=== PATIENT | male | born 1950 | race Caucasian/White ===

== ENCOUNTER 2016-10-06 15:43 | Emergency (ER) | payer OTHER ==
[2016-10-06 16:06] VITALS: BP 153/94
[2016-10-06] MEDS ORDERED: Bupivacaine 0.5%/EPINEPHrine 1:200,000 1.8 ML Cartridge INJECT ONE (16:14)
--- NOTE | 2016-10-06 17:06 | EDM.PDOC ---
ED HPI GENERAL MEDICAL PROBLEM - General Chief Complaint: ENT Problem Stated Complaint: ABCESS Time Seen by Provider: 10/06/16 16:00 Source of Information: Reports: Patient History Limitations: Reports: No Limitations - History of Present Illness INITIAL COMMENTS - FREE TEXT/NARRATIVE: Connor is a 65 year old male who presents to the ED today with c/o right upper tooth pain and facial swelling, progressive since Saturday. Patient reports low grade fever started last night, he denies any chills, nausea/vomiting or other systemic system concerns. Patient is on Coumadin for atrial fibrillation. Patient has not been to a dentist in years secondary to lack of dental coverage. Onset: Gradual Duration: Day(s): (5) Location: Reports: Face, Other (Mouth) Right Face Pain Score (Numeric/FACES): 3 - Related Data Allergies Allergy/AdvReac Type Severity Reaction Status Date / Time No Known Allergies Allergy Verified 10/06/16 16:17 Past Medical History Cardiovascular History: Reports: Afib, CAD, High Cholesterol, Hypertension, [place] Genitourinary History: Reports: Renal Calculus Musculoskeletal History: Reports: Fracture Psychiatric History: Reports: Addiction, Anxiety, Depression, Panic Attack Endocrine/Metabolic History: Reports: Diabetes, Type II Hematologic History: Reports: Anticoagulation Therapy Oncologic (Cancer) History: Reports: Colon - Past Surgical History Cardiovascular Surgical History: Reports: Coronary Artery Stent GI Surgical History: Reports: Appendectomy, Colon Musculoskeletal Surgical History: Reports: Arthroscopic Knee, Other (See Below) Other Musculoskeletal Surgeries/Procedures:: ankle repair Social & Family History - Tobacco Use Smoking Status *Q: Heavy Tobacco Smoker Years of Tobacco use: 45 Packs/Tins Daily: 1 - Recreational Drug Use Recreational Drug Use: No ED ROS ENT - Review of Systems Review Of Systems: See Below Constitutional: Reports: Fever HEENT: Reports: No Symptoms Respiratory: Reports: No Symptoms Cardiovascular: Reports: No Symptoms Endocrine: Reports: No Symptoms GI/Abdominal: Reports: No Symptoms : Reports: No Symptoms Musculoskeletal: Reports: No Symptoms Skin: Reports: Other (Right Cheek Swelling) Neurological: Reports: No Symptoms ED EXAM, ENT - Physical Exam Exam: See Below Exam Limited By: No Limitations General Appearance: Alert, WD/WN, No Apparent Distress Eye Exam: Bilateral Eye: EOMI, Normal Inspection, PERRL Ears: Normal External Exam, Normal TMs Mouth/Throat: Dental Abcess, Dental Tenderness, Gum Swelling, Other (No exudate , no trismus, no evidence of Everton's Angina, uvula midline, no exudate, surrounding gum erythema with fluctuance above broken/decayed tooth # 5) Head: Atraumatic Neck: Normal Inspection, Supple, Non-Tender, Full Range of Motion, Lymphadenopathy (R) (+2) Respiratory/Chest: No Respiratory Distress, Lungs Clear, Normal Breath Sounds Cardiovascular: Normal Peripheral Pulses, No Murmur, Irregularly Irregular. No : Regular Rate, Rhythm Neurological: Alert, Oriented, CN II-XII Intact Psychiatric: Normal Affect, Normal Mood Course - Vital Signs Last Recorded V/S: Last Vital Signs Temp 37.9 C 10/06/16 16:16 Pulse 95 10/06/16 16:16 Resp 16 10/06/16 16:16 BP 153/94 H 10/06/16 16:16 Pulse Ox 98 10/06/16 16:16 Connor is a 65 year old male, hx of atrial fibrillation on Coumadin who presents to the ED today with c/o right upper tooth pain and swelling, affected tooth number 5. Patient on initial arrival here as low grade temp of 100.0 F. Patient is non-toxic appearing, well hydrated, normotensive and not tachycardic. I am not concerned for sepsis based on exam. Patient's remaining exam consistent with dental abscess, block done after obtaining patient verbal consent. Area around tooth anesthetized with 3.6 ml of Marcaine 0.5 % with epi via dental syringe. Patient tolerated well, small incision made, 2 mm to area of fluctuance along gumline with purulent/blood drainage return. Patient tolerated well. No evidence of significant bleeding. I will start patient on Amoxicillin for 10 days, he can continue with Tylenol, I did given him Oxycodone for severe pain. Patient instructed to f/u with Dentist in one week, reasons to return to the ED discussed in detail. I did encourage patient to start Culturelle, a probiotic to prevent stomach upset and diarrhea. I also instructed patient to have INR checked Saturday or this week to make sure it is not supra-therapeutic. Patient is agreeable to plan of care and discharge instructions. He was discharged in stable condition with his driving. - Orders/Labs/Meds Meds: Medications Discontinued Medications Generic Name Dose Route Start Last Admin Trade Name Rere PRN Reason Stop Dose Admin Bupivacaine HCl/Epinephrine Bitart 3.6 ml 10/06/16 16:14 Marcaine 0.5%/Epinephrine 1:200,000 INJECT 10/06/16 16:15 ONETIME ONE Departure - Departure Time of Disposition: 17:30 Disposition: Refer to Observation Condition: Good Clinical Impression: Dental abscess, Facial cellulitis - Discharge Information Instructions: Dental Abscess Referrals: Brandi Barbour PA-C [Primary Care Provider] - Forms: ED Department Discharge Additional Instructions: Take Antiobiotics as prescribed. Have INR checked this next week as antibiotics may make your INR higher. Follow up with Dentist in one week. Return to the ED with any worsening symptoms. I would recommend a probiotic such as Culturelle while you are on the amoxicillin to prevent stomach upset and diarrhea. Take Tylenol for pain, take Oxycodone for severe pain (no driving if you take the oxycodone)
== END 2016-10-06 17:24 | disposition home or self-care (01) ==
LOC: JP.ED 15:43
DX: K04.7 Periapical abscess without sinus (principal); L03.211 Cellulitis of face; I48.91 Unspecified atrial fibrillation; I25.10 Atherosclerotic heart disease of native coronary artery without angina pectoris; I10 Essential (primary) hypertension; I25.2 Old myocardial infarction; E78.00 Pure hypercholesterolemia, unspecified; F41.0 Panic disorder [episodic paroxysmal anxiety]; F32.9 Major depressive disorder, single episode, unspecified; F17.210 Nicotine dependence, cigarettes, uncomplicated; E11.9 Type 2 diabetes mellitus without complications; Z85.038 Personal history of other malignant neoplasm of large intestine; Z95.5 Presence of coronary angioplasty implant and graft; Z90.49 Acquired absence of other specified parts of digestive tract; Z98.890 Other specified postprocedural states
CPT/HCPCS: 41800; 99283-25

== ENCOUNTER 2017-06-13 15:50 | Emergency (ER) | payer OTHER ==
--- NOTE | 2017-06-13 16:17 | EDM.PDOC ---
ED HPI GENERAL MEDICAL PROBLEM - General Chief Complaint: Neuro Symptoms/Deficits Stated Complaint: MEDICAL VIA [facility] Time Seen by Provider: 06/13/17 16:10 Source of Information: Reports: Patient, EMS, Old Records, RN History Limitations: Reports: No Limitations - History of Present Illness INITIAL COMMENTS - FREE TEXT/NARRATIVE: 66 yo male presents via EMS with slurred speech, weakness(diffuse) and HTN. Neuro sx' of about 90 min duration before EMS arrival at the home. Weakness was subtle per EMS. Worked outside cutting wood this morning without issue. Has had a RAO for a couple days, at about 1430 h today RAO got a lot worse and nearly passed out. Decreased LOC per EMS. Onset: Today Onset Date: 06/13/17 Onset Time: 14:30 Duration: Minutes:, Constant Location: Reports: Head Quality: Reports: Ache Severity: Severe Improves with: Reports: None Worsens with: Reports: None Context: Reports: Other (RAO on and off for a couple days with HTN) Associated Symptoms: Reports: Weakness (generalized) Treatments INVASIVE CARDIOLOGIST: Reports: Other (see below) (saline lock) - Related Data Allergies Allergy/AdvReac Type Severity Reaction Status Date / Time No Known Allergies Allergy Verified 06/13/17 17:52 Home Meds: Home Meds *Warfarin 06/13/17 [History] Aspirin 06/13/17 [History] Diltiazem HCl [Tiazac] 06/13/17 [History] Hydrochlorothiazide 1 tab PO DAILY 06/13/17 [History] Isosorbide Mononitrate [Isosorbide Mononitrate ER] 1 tab PO DAILY 06/13/17 [ History] Losartan [Cozaar] 1 tab PO DAILY 06/13/17 [History] Metoprolol Tartrate [Lopressor] 1 tab PO BID 06/13/17 [History] Simvastatin [Zocor] 20 mg PO BEDTIME 06/13/17 [History] amLODIPine Besylate [Amlodipine Besylate] 1 tab PO DAILY 06/13/17 [History] metFORMIN [Glucophage] 1 tab PO DAILY 06/13/17 [History] Past Medical History Cardiovascular History: Reports: Afib, CAD, High Cholesterol, Hypertension, [place] Genitourinary History: Reports: Renal Calculus Musculoskeletal History: Reports: Fracture Psychiatric History: Reports: Addiction, Anxiety, Depression, Panic Attack Endocrine/Metabolic History: Reports: Diabetes, Type II Hematologic History: Reports: Anticoagulation Therapy Oncologic (Cancer) History: Reports: Colon - Past Surgical History Cardiovascular Surgical History: Reports: Coronary Artery Stent GI Surgical History: Reports: Appendectomy, Colon Musculoskeletal Surgical History: Reports: Arthroscopic Knee, Other (See Below) Other Musculoskeletal Surgeries/Procedures:: ankle repair Social & Family History - Tobacco Use Smoking Status *Q: Heavy Tobacco Smoker Years of Tobacco use: 45 Packs/Tins Daily: 1 - Recreational Drug Use Recreational Drug Use: No ED ROS GENERAL - Review of Systems Review Of Systems: Unable To Obtain (Decreased LOC, not here yet) ED EXAM, NEURO - Physical Exam Exam: See Below Exam Limited By: No Limitations General Appearance: WD/WN, Obtunded, Mild Distress, Obese Eye Exam: Bilateral Eye: Normal Inspection Ears: Normal External Exam, Normal Canal, Hearing Grossly Normal, Normal TMs Nose: Normal Inspection, Normal Mucosa, No Blood Throat/Mouth: Normal Inspection, Normal Lips, Normal Oropharynx, Normal Voice, No Airway Compromise Head Exam: Atraumatic, Normocephalic Neck: Normal Inspection, Supple, Non-Tender Respiratory/Chest: No Respiratory Distress, Lungs Clear, Normal Breath Sounds, No Accessory Muscle Use Cardiovascular: Regular Rate, Rhythm GI/Abdominal: Normal Bowel Sounds, Soft, Non-Tender, No Distention Neurological: CN II-XII Intact, Other (diffuse weakness 4/5 all extrems, non- verbal. Follows commands. ) DTR: 3+: Bicep (R), Bicep (L), Tricep (R), Tricep (L), Patella (R), Patella (L) , Achilles (R), Achilles (L) Back Exam: Normal Inspection Extremities: Normal Inspection, Normal Range of Motion, Non-Tender, No Pedal Edema Psychiatric: Flat Affect Skin Exam: Warm, Dry, Intact, Normal Color, No Rash EKG INTERPRETATION EKG Date: 06/13/17 Time: 16:25 Rhythm: A-Fib Rate (Beats/Min): 86 [place]: Normal P-Wave: Absent QRS: Normal ST-T: Normal QT: Normal Comparison: NA - No Prior EKG Course - Vital Signs Text/Narrative:: Stroke neurology consult obtained @ 1650h Last Recorded V/S: Last Vital Signs Temp 36.2 C 06/13/17 16:03 Pulse 90 06/13/17 18:22 Resp 22 H 03/08/18 18:22 BP 149/80 H 06/13/17 18:22 Pulse Ox 94 L 06/13/17 18:22 - Orders/Labs/Meds Orders: Active Orders 24 hr Category Date Time Status Cardiac Monitoring [RC] .As Directed Care 06/13/17 16:26 Active EKG Documentation Completion [RC] ASDIRECTED Care 06/13/17 16:26 Active Schaefer Catheter Insertion [Insert Urinary Catheter] [OM. Care 06/13/17 16:30 Ordered PC] Q24H Oxygen Therapy Adult [Oxygen Therapy, ED] [RC] Care 06/13/17 16:25 Active ASDIRECTED Urinary Catheter Assessment [RC] ASDIRECTED Care 06/13/17 16:25 Active Ang Head [CT] Stat Exams 06/13/17 16:51 Taken Ang Neck [CT] Stat Exams 06/13/17 16:51 Taken Head wo Cont [CT] Stat Exams 06/13/17 16:01 Taken Iopamidol [Isovue-370 (76%)] Med 06/13/17 17:30 Active 100 ml IV . DIRECTED Potassium Chloride [KCL 20 MEQ in Water 100 ML] 20 meq Med 06/13/17 16:38 Active Premix Bag 1 bag IV ONETIME Sodium Chloride 0.9% [Normal Saline] 1,000 ml Med 06/13/17 16:30 Active IV ASDIRECTED Sodium Chloride 0.9% [Normal Saline] 80 ml Med 06/13/17 17:30 Active IV ASDIRECTED EKG 12 Lead [EK] Routine Ther 06/13/17 16:26 Ordered Medication Orders Sodium Chloride (Normal Saline) 1,000 mls @ 75 mls/hr IV ASDIRECTED [facility] Last Admin: 06/13/17 16:31 Dose: 75 mls/hr Potassium Chloride 20 meq/ (Premix) 100 mls @ 50 mls/hr IV ONETIME ONE Stop: 06/13/17 18:37 Last Admin: 06/13/17 17:03 Dose: 50 mls/hr Sodium Chloride (Normal Saline) 80 mls @ 3 mls/sec IV ASDIRECTED [facility] Last Admin: 06/13/17 17:28 Dose: 3 mls/sec Iopamidol (Isovue-370 (76%)) 100 ml IV . DIRECTED TESS Last Admin: 06/13/17 17:28 Dose: 100 ml Labs: Laboratory Tests 06/13/17 06/13/17 06/13/17 Range/Units 16:24 16:24 16:27 WBC 12.3 H (4.5-11.0) K/uL RBC 5.94 H (4.30-5.90) M/uL Hgb 18.1 H* (12.0-15.0) g/dL Hct 50.7 (40.0-54.0) % MCV 85 (80-98) fL MCH 31 (27-31) pg MCHC 36 (32-36) % Plt Count 388 (150-400) K/uL PT 34.6 H (9.5-12.0) sec INR 3.09 H (0.80-1.20) Sodium 145 (140-148) mmol/L Potassium 3.1 L (3.6-5.2) mmol/L Chloride 103 (100-108) mmol/L Carbon Dioxide 28 (21-32) mmol/L Anion Gap 17.1 H (5.0-14.0) mmol/L BUN 15 (7-18) mg/dL Creatinine 1.3 (0.8-1.3) mg/dL Est Cr Clr Drug Dosing 61.14 mL/min Estimated GFR (MDRD) 56 L (>60) Glucose 136 H (74-106) mg/dL Calcium 9.8 (8.5-10.1) mg/dL Magnesium (1.8-2.4) mg/dL Troponin I < 0.017 (0.000-0.056) ng/mL Urine Color Urine Appearance Urine pH (4.5-8.0) Ur Specific [place] (1.008-1.030) Urine Protein (NEGATIVE) mg/dL Urine Glucose (UA) (NEGATIVE) mg/dL Urine Ketones (NEGATIVE) mg/dL Urine Occult Blood (NEGATIVE) Urine Nitrite (NEGAITVE) Urine Bilirubin (NEGATIVE) Urine Urobilinogen (NORMAL) mg/dL Ur Leukocyte Esterase (NEGATIVE) Urine RBC (0-5) Urine WBC (0-5) Ur Epithelial Cells Amorphous Sediment Urine Bacteria Urine Mucus 06/13/17 06/13/17 Range/Units 16:39 16:39 WBC (4.5-11.0) K/uL RBC (4.30-5.90) M/uL Hgb (12.0-15.0) g/dL Hct (40.0-54.0) % MCV (80-98) fL MCH (27-31) pg MCHC (32-36) % Plt Count (150-400) K/uL PT (9.5-12.0) sec INR (0.80-1.20) Sodium (140-148) mmol/L Potassium (3.6-5.2) mmol/L Chloride (100-108) mmol/L Carbon Dioxide (21-32) mmol/L Anion Gap (5.0-14.0) mmol/L BUN (7-18) mg/dL Creatinine (0.8-1.3) mg/dL Est Cr Clr Drug Dosing mL/min Estimated GFR (MDRD) (>60) Glucose (74-106) mg/dL Calcium (8.5-10.1) mg/dL Magnesium 2.1 (1.8-2.4) mg/dL Troponin I (0.000-0.056) ng/mL Urine Color Yellow Urine Appearance Slightly cloudy Urine pH 8.0 (4.5-8.0) Ur Specific [place] 1.020 (1.008-1.030) Urine Protein 30 H (NEGATIVE) mg/dL Urine Glucose (UA) Normal (NEGATIVE) mg/dL Urine Ketones Negative (NEGATIVE) mg/dL Urine Occult Blood Negative (NEGATIVE) Urine Nitrite Negative (NEGAITVE) Urine Bilirubin Negative (NEGATIVE) Urine Urobilinogen Normal (NORMAL) mg/dL Ur Leukocyte Esterase Negative (NEGATIVE) Urine RBC 0-5 (0-5) Urine WBC 0-5 (0-5) Ur Epithelial Cells Rare Amorphous Sediment Few Urine Bacteria Few Urine Mucus Not seen Meds: Medications Generic Name Dose Route Start Last Admin Trade Name Freq PRN Reason Stop Dose Admin Sodium Chloride 1,000 mls @ 75 mls/hr 06/13/17 16:30 06/13/17 16:31 Normal Saline IV 75 mls/hr ASDIRECTED TESS Administration Potassium Chloride 20 meq/ 100 mls @ 50 mls/hr 06/13/17 16:38 06/13/17 17:03 Premix IV 06/13/17 18:37 50 mls/hr ONETIME ONE Administration Sodium Chloride 80 mls @ 3 mls/sec 06/13/17 17:30 06/13/17 17:28 Normal Saline IV 3 mls/sec ASDIRECTED TESS Administration Iopamidol 100 ml 06/13/17 17:30 06/13/17 17:28 Isovue-370 (76%) IV 100 ml . DIRECTED TESS Administration Discontinued Medications Generic Name Dose Route Start Last Admin Trade Name Rere PRN Reason Stop Dose Admin Labetalol HCl 10 mg 06/13/17 16:44 06/13/17 17:03 Normodyne IVPUSH 06/13/17 16:45 10 mg ONETIME ONE Administration Protocol Morphine Sulfate 2 mg 06/13/17 18:05 Morphine IVPUSH 06/13/17 18:06 ONETIME ONE - Radiology Interpretation Free Text/Narrative:: Negative Head CT CTA head and neck-mass at L base of tongue, opacified L vertebral artery. Otherwise negative. CT Results Date: 06/13/17 CT Results Time: 16:36 Departure - Departure Time of Disposition: 18:45 Disposition: DC/Tfer to Acute Hospital 02 Condition: Poor Clinical Impression: Hypokalemia, Polycythemia, Tobacco abuse, Tongue mass Atrial fibrillation Qualifiers: Atrial fibrillation type: chronic Qualified Code(s): I48.2 - Chronic atrial fibrillation HTN (hypertension) Qualifiers: Hypertension type: essential hypertension Qualified Code(s): I10 - Essential ( primary) hypertension Headache Qualifiers: Headache type: unspecified Headache chronicity pattern: acute headache Intractability: intractable Qualified Code(s): R51 - Headache - Discharge Information Referrals: PCP,None [Primary Care Provider] - Forms: ED Department Discharge - My Orders Last 24 Hours: My Active Orders 06/13/17 16:01 Head wo Cont [CT] Stat 06/13/17 16:25 Oxygen Therapy Adult [Oxygen Therapy, ED] [RC] ASDIRECTED Urinary Catheter Assessment [RC] ASDIRECTED 06/13/17 16:26 Cardiac Monitoring [RC] .As Directed EKG Documentation Completion [RC] ASDIRECTED EKG 12 Lead [EK] Routine 06/13/17 16:30 Schaefer Catheter Insertion [Insert Urinary Catheter] [OM.PC] Q24H Sodium Chloride 0.9% [Normal Saline] 1,000 ml IV ASDIRECTED 06/13/17 16:38 Potassium Chloride [KCL 20 MEQ in Water 100 ML] 20 meq Premix Bag 1 bag IV ONETIME 06/13/17 16:51 Ang Head [CT] Stat Ang Neck [CT] Stat 06/13/17 17:30 Iopamidol [Isovue-370 (76%)] 100 ml IV . DIRECTED Sodium Chloride 0.9% [Normal Saline] 80 ml IV ASDIRECTED - Assessment/Plan Last 24 Hours: My Active Orders 06/13/17 16:01 Head wo Cont [CT] Stat 06/13/17 16:25 Oxygen Therapy Adult [Oxygen Therapy, ED] [RC] ASDIRECTED Urinary Catheter Assessment [RC] ASDIRECTED 06/13/17 16:26 Cardiac Monitoring [RC] .As Directed EKG Documentation Completion [RC] ASDIRECTED EKG 12 Lead [EK] Routine 06/13/17 16:30 Schaefer Catheter Insertion [Insert Urinary Catheter] [OM.PC] Q24H Sodium Chloride 0.9% [Normal Saline] 1,000 ml IV ASDIRECTED 06/13/17 16:38 Potassium Chloride [KCL 20 MEQ in Water 100 ML] 20 meq Premix Bag 1 bag IV ONETIME 06/13/17 16:51 Ang Head [CT] Stat Ang Neck [CT] Stat 06/13/17 17:30 Iopamidol [Isovue-370 (76%)] 100 ml IV . DIRECTED Sodium Chloride 0.9% [Normal Saline] 80 ml IV ASDIRECTED
[2017-06-13] MEDS ORDERED: Sodium Chloride 0.9% 1,000 ML IV SCH (16:30)
[2017-06-13] MEDS ORDERED: Potassium Chloride 20 MEQ in Premix Bag 1 BAG IV ONE (16:38)
[2017-06-13] MEDS ORDERED: Labetalol 20 MG/4 ML Syringe IVPUSH ONE (16:44)
[2017-06-13] MEDS ORDERED: Iopamidol 755 Mg/ML 100 ML Bottle IV SCH (17:30)
[2017-06-13] MEDS ORDERED: Sodium Chloride 0.9% 80 ML IV SCH (17:30)
[2017-06-13] MEDS ORDERED: Morphine 2 MG/ML Syringe IVPUSH ONE (18:05)
[2017-06-13 18:25] VITALS: BP 149/80
== END 2017-06-13 18:57 ==
LOC: JP.ED 15:50
DX: I48.2 Chronic atrial fibrillation (principal); E87.6 Hypokalemia; I10 Essential (primary) hypertension; D75.1 Secondary polycythemia; R22.9 Localized swelling, mass and lump, unspecified; R51 Headache; E78.00 Pure hypercholesterolemia, unspecified; I25.2 Old myocardial infarction; E11.9 Type 2 diabetes mellitus without complications; F17.210 Nicotine dependence, cigarettes, uncomplicated; Z79.84 Long term (current) use of oral hypoglycemic drugs; Z79.01 Long term (current) use of anticoagulants; Z79.899 Other long term (current) drug therapy
CPT/HCPCS: 36415; 51702; 70450; 70496; 70498; 80048; 81001; 83735; 84484; 85027; 85610; 93005; 96361; 96374; 99285; J3480; J7030; J7040; Q9967; 99284

== ENCOUNTER 2020-07-15 17:17 | Emergency (ER) | payer OTHER | END 2020-07-15 19:12 | disposition left against medical advice (07) | LOC: JP.ED 17:17 | DX: Z53.21 Procedure and treatment not carried out due to patient leaving prior to being seen by health care provider (principal) ==

== ENCOUNTER 2020-12-06 17:17 | Emergency (ER) | payer OTHER ==
[2020-12-06 17:47] VITALS: BP 156/80; PULSE 105
--- NOTE | 2020-12-06 18:34 | EDM.PDOC ---
ED HPI GENERAL MEDICAL PROBLEM - General Chief Complaint: Genitourinary Problem Stated Complaint: BLEEDING AFTER PROCEDURE Time Seen by Provider: 12/06/20 18:00 Source of Information: Reports: Patient, Family History Limitations: Reports: No Limitations - History of Present Illness INITIAL COMMENTS - FREE TEXT/NARRATIVE: 70-year-old male with significant hematuria which is persistent especially later in the day after having a stent placed in the left ureter last . He has an appointment with the radio news anchor in 2 days and with the urologist to remove the stent in 1 week. Some intermittent pain but not worsening, no fevers or chills. He is concerned about the persistent blood in his urine, called the clinic and was told to come to the emergency room. A UA was obtained and does appear to be grossly bloody. He also feels her persistent urgent sensation to urinate but is emptying his bladder. No shortness of breath or chest pain. Denies nausea or vomiting. Duration: Day(s): (Symptoms have been ongoing since his stent placement last but worsening over the last few days) Associated Symptoms: Reports: Other (Intermittent back and abdominal pain). Denies: Fever/Chills, Headaches, Loss of Appetite, Malaise, Nausea/Vomiting, Shortness of Breath, Weakness - Related Data Allergies Allergy/AdvReac Type Severity Reaction Status Date / Time No Known Allergies Allergy Verified 12/06/20 17:32 Home Meds: Home Meds Aspirin 81 mg PO DAILY 06/13/17 [History] Isosorbide Mononitrate [Isosorbide Mononitrate ER] 15 mg PO DAILY 06/13/17 [History] Metoprolol Tartrate [Lopressor] 25 mg PO BID 06/13/17 [History] amLODIPine Besylate [Amlodipine Besylate] 1 tab PO DAILY 06/13/17 [History] metFORMIN [Glucophage] 1 tab PO DAILY 06/13/17 [History] Amiodarone HCl [Pacerone] 200 mg PO DAILY 12/06/20 [History] Chlorthalidone 25 mg PO DAILY 12/06/20 [History] Dabigatran Etexilate Mesylate [Pradaxa] 150 mg PO DAILY 12/06/20 [History] Nitroglycerin [Nitrostat] 0.4 mg SL ASDIRECTED 12/06/20 [History] Tamsulosin [Tamsulosin 24 Hr] 0.4 mg PO DAILY 12/06/20 [History] atorvaSTATin [Lipitor] 40 mg PO BEDTIME 12/06/20 [History] Past Medical History Cardiovascular History: Reports: Afib, CAD, High Cholesterol, Hypertension, [place] Genitourinary History: Reports: Renal Calculus, Other (See Below) Other Genitourinary History: stent placed Musculoskeletal History: Reports: Fracture Psychiatric History: Reports: Addiction, Anxiety, Depression, Panic Attack Endocrine/Metabolic History: Reports: Diabetes, Type II Hematologic History: Reports: Anticoagulation Therapy Oncologic (Cancer) History: Reports: Colon - Past Surgical History Cardiovascular Surgical History: Reports: Coronary Artery Stent GI Surgical History: Reports: Appendectomy, Colon Musculoskeletal Surgical History: Reports: Arthroscopic Knee, Other (See Below) Other Musculoskeletal Surgeries/Procedures:: ankle repair Social & Family History - Tobacco Use Tobacco Use Status *Q: Never Tobacco User ED ROS GENERAL - Review of Systems Review Of Systems: See Below Constitutional: Denies: Fever, Chills, Malaise HEENT: Reports: No Symptoms Respiratory: Denies: Shortness of Breath, Cough Cardiovascular: Denies: Chest Pain GI/Abdominal: Reports: Abdominal Pain. Denies: Nausea, Vomiting : Reports: Hematuria, Urgency Musculoskeletal: Reports: Back Pain Skin: Reports: No Symptoms Neurological: Reports: No Symptoms ED EXAM, RENAL/ - Physical Exam Exam: See Below Exam Limited By: No Limitations General Appearance: Alert, No Apparent Distress Eye Exam: Bilateral Eye: Normal Inspection (Good hydration, normal conjunctival color) Head: Atraumatic Respiratory/Chest: No Respiratory Distress, Lungs Clear Cardiovascular: Regular Rate, Rhythm GI/Abdominal: Soft, Tender (Mild discomfort with palpation across the left side of the abdomen but no guarding or rebound) Extremities: Normal Inspection. No: Pedal Edema Neurological: Alert, Oriented Psychiatric: Normal Affect, Normal Mood Skin Exam: Warm, Dry Course - Vital Signs Last Recorded V/S: Last Vital Signs Temp 97.3 F 12/06/20 17:48 Pulse 105 H 12/06/20 17:48 Resp 20 12/06/20 17:48 BP 156/80 H 12/06/20 17:48 Pulse Ox 96 12/06/20 17:48 - Orders/Labs/Meds Orders: Active Orders 24 hr Category Date Time Status Abdomen 1V Flat [CR] Stat Exams 12/06/20 19:15 Taken Renal Ltd [US] Stat Exams 12/06/20 19:15 Taken Labs: Laboratory Tests 12/06/20 12/06/20 12/06/20 Range/Units 18:10 18:20 18:20 WBC 10.9 (4.5-11.0) K/uL RBC 4.97 (4.30-5.90) M/uL Hgb 15.5 H D (12.0-15.0) g/dL Hct 44.5 (40.0-54.0) % MCV 90 (80-98) fL MCH 31 (27-31) pg MCHC 35 (32-36) % Plt Count 310 (150-400) K/uL Neut % (Auto) 72.7 H (36-66) % Lymph % (Auto) 17.7 L (24-44) % [place] % (Auto) 7.5 H (2-6) % Eos % (Auto) 1.6 L (2-4) % Baso % (Auto) 0.5 (0-1) % Sodium 140 (140-148) mmol/L Potassium 3.5 L (3.6-5.2) mmol/L Chloride 101 (100-108) mmol/L Carbon Dioxide 30 (21-32) mmol/L Anion Gap 12.5 (5.0-14.0) mmol/L BUN 27 H D (7-18) mg/dL Creatinine 2.3 H D (0.8-1.3) mg/dL Est Cr Clr Drug Dosing 31.74 mL/min Estimated GFR (MDRD) 28 L (>60) Glucose 128 H (74-106) mg/dL Calcium 9.3 (8.5-10.1) mg/dL Urine Color Red A (YELLOW) Urine Appearance Turbid A (CLEAR) Urine pH 5.5 (5.0-8.0) Ur Specific [place] >= 1.030 (1.008-1.030) Urine Protein >=300 H (NEGATIVE) mg/dL Urine Glucose (UA) Negative (NEGATIVE) mg/dL Urine Ketones Trace H (NEGATIVE) mg/dL Urine Occult Blood Large H (NEGATIVE) Urine Nitrite Negative (NEGATIVE) Urine Bilirubin Moderate H (NEGATIVE) Urine Urobilinogen 0.2 (0.2-1.0) EU/dL Ur Leukocyte Esterase Trace H (NEGATIVE) Urine RBC Packed H (0-5) Urine WBC 0-5 (0-5) Ur Epithelial Cells Not seen Amorphous Sediment Few Urine Bacteria Moderate Urine Mucus Not seen Urine Other - Re-Assessments/Exams Free Text/Narrative Re-Assessment/Exam: 12/06/20 18:35 Urine was grossly bloody, sample was sent to the lab. Bladder scan showed an empty bladder. CBC and BMP were obtained. 12/06/20 20:25 UA showed moderate bacteria, packed RBCs. Discussion was had with urology, it was recommended that he get a KUB and ultrasound to rule out hydronephrosis of the left kidney due to the mildly increasing creatinine and decreasing GFR. These were both normal and reassuring. A culture of the urine was started, patient will be put on Cipro 500 mg twice daily and follow-up with nephrology in 2 days as scheduled. Continue to push fluids. Departure - Departure Time of Disposition: 20:31 Disposition: Home, Self-Care 01 Clinical Impression: Hematuria, gross, Acute kidney injury - Discharge Information Instructions: Hematuria, Adult Referrals: Gretchen Wright, PRODUCTION SUPERVISOR [Primary Care Provider] - Forms: ED Department Discharge Care Plan Goals: Continue any current medications, take Cipro twice daily as directed and recheck with nephrology as planned. Return sooner if worsening such as increased pain or fever. Concentrate on drinking lots of water. Sepsis Event Note (ED) - Evaluation Sepsis Screening Result: No Definite Risk - Focused Exam Vital Signs: Vital Signs Temp Pulse Resp BP Pulse Ox 12/06/20 17:48 97.3 F 105 H 20 156/80 H 96 12/06/20 17:43 97.3 F 105 H 20 156/80 H 96 - My Orders Last 24 Hours: My Active Orders 12/06/20 19:15 Abdomen 1V Flat [CR] Stat Renal Ltd Bi [US] Stat - Assessment/Plan Last 24 Hours: My Active Orders 12/06/20 19:15 Abdomen 1V Flat [CR] Stat Renal Ltd Bi [US] Stat
--- NOTE | 2020-12-07 08:59 | US ---
Renal Ltd Bi CLINICAL HISTORY: Left ureteral stent. COMPARISON: None. TECHNIQUE: Multiple sonographic images were obtained through the kidneys in the sagittal and transverse projections. Right kidney measures 11.3 x 6.4 x 5.7 cm. Cortical thickness is 1.8 cm. Off the upper pole is a 3.7 x 4.0 x 3.8 cm simple cyst. There is a calcific density overlying the lower pole of the right kidney on current KUB. This is not definitively identified on ultrasound. There is some of echogenic focus in the lower pole without significant shadowing. Left kidney measures 12.0 x 7.1 x 6.2 cm. Cortical thickness is 1.6 cm.. IMPRESSION: Cyst upper pole right kidney Left-sided ureteral stent without hydronephrosis Right upper quadrant calcifications seen on current KUB is not definitively identified as a renal stone. This may be technical
--- NOTE | 2020-12-07 09:00 | CR ---
Abdomen 1V Flat CLINICAL HISTORY: Stent position FINDINGS: There is a double-J ureteral stent in the left collecting system. There is a 5 x 9 mm calcification overlying the lower pole of the right kidney. Gas pattern is nonspecific IMPRESSION: Left double-J ureteral stent Right upper quadrant calcification overlies the lower pole right kidney. This may be a urinary stone
== END 2020-12-06 20:43 | disposition home or self-care (01) ==
LOC: JP.ED 17:17
DX: R31.0 Gross hematuria (principal); N17.9 Acute kidney failure, unspecified; I48.91 Unspecified atrial fibrillation; I25.10 Atherosclerotic heart disease of native coronary artery without angina pectoris; I10 Essential (primary) hypertension; I25.2 Old myocardial infarction; E11.9 Type 2 diabetes mellitus without complications; Z79.82 Long term (current) use of aspirin; Z79.84 Long term (current) use of oral hypoglycemic drugs; Z79.899 Other long term (current) drug therapy; Z95.5 Presence of coronary angioplasty implant and graft
CPT/HCPCS: 36415; 74018; 74018-26; 76775-26; 76775-50; 80048; 81001; 85025; 99284-25

== ENCOUNTER 2021-04-13 14:51 | Emergency (ER) | payer OTHER ==
--- NOTE | 2021-04-13 15:30 | EDM.PDOC ---
ED HPI GENERAL MEDICAL PROBLEM - General Chief Complaint: Respiratory Problem Stated Complaint: SOB Time Seen by Provider: 04/13/21 15:20 Source of Information: Reports: Patient, Family History Limitations: Reports: No Limitations - History of Present Illness INITIAL COMMENTS - FREE TEXT/NARRATIVE: 70-year-old male with COPD, presents with increasing shortness of breath, hypoxi a, runny nose and mild headache for the past 24 hours. He recently had a visit from his grandchildren who all had viral colds. He denies any significant fever, chills or headache. Moderate cough which is nonproductive. Home nebulizer is helpful but he arrived to the emergency room with O2 sats only in the mid 80s. Denies nausea or vomiting, has no pain, he has been vaccinated for Covid with 2 doses, he has not had his booster yet. He is unsure if he has had his influenza vaccine. Onset: Gradual Duration: Hour(s): (Came on gradually over the last 24 hours) Improves with: Reports: Other (Oxygen supplied in the emergency room makes him feel much better, his DuoNeb also helps briefly) Associated Symptoms: Reports: Cough, Malaise, Shortness of Breath, Other (Rhinitis). Denies: Fever/Chills middle right upper back Pain Score (Numeric/FACES): 3 - Related Data Allergies Allergy/AdvReac Type Severity Reaction Status Date / Time No Known Allergies Allergy Verified 04/13/21 15:12 Home Meds: Home Meds Aspirin 81 mg PO DAILY 06/13/17 [History] Isosorbide Mononitrate [Isosorbide Mononitrate ER] 15 mg PO DAILY 06/13/17 [History] Metoprolol Tartrate [Lopressor] 50 mg PO BID 06/13/17 [History] amLODIPine Besylate [Amlodipine Besylate] 10 mg PO DAILY 06/13/17 [History] metFORMIN [Glucophage] 1 tab PO BEDTIME 06/13/17 [History] Amiodarone HCl [Pacerone] 200 mg PO DAILY 12/06/20 [History] Nitroglycerin [Nitrostat] 0.4 mg SL ASDIRECTED 12/06/20 [History] atorvaSTATin [Lipitor] 40 mg PO BEDTIME 12/06/20 [History] Dabigatran Etexilate Mesylate [Pradaxa] 75 mg PO DAILY 04/13/21 [History] lisinopriL [Lisinopril] 40 mg PO DAILY 04/13/21 [History] Past Medical History HEENT History: Reports: None Cardiovascular History: Reports: Afib, CAD, High Cholesterol, Hypertension, [place] Respiratory History: Reports: COPD Genitourinary History: Reports: Renal Calculus, Other (See Below) Other Genitourinary History: stent placed Musculoskeletal History: Reports: Fracture Psychiatric History: Reports: Addiction, Anxiety, Depression, Panic Attack Endocrine/Metabolic History: Reports: Diabetes, Type II Hematologic History: Reports: Anticoagulation Therapy Oncologic (Cancer) History: Reports: Colon - Infectious Disease History Infectious Disease History: Reports: Chicken Pox, Influenza, Measles - Past Surgical History HEENT Surgical History: Reports: None Cardiovascular Surgical History: Reports: Coronary Artery Stent GI Surgical History: Reports: Appendectomy, Colon Musculoskeletal Surgical History: Reports: Arthroscopic Knee, Other (See Below) Other Musculoskeletal Surgeries/Procedures:: ankle repair Social & Family History - Tobacco Use Years of Tobacco use: 47 - Caffeine Use Caffeine Use: Reports: Coffee - Recreational Drug Use Recreational Drug Use: No ED ROS GENERAL - Review of Systems Review Of Systems: See Below Constitutional: Reports: Malaise. Denies: Fever, Chills HEENT: Reports: Rhinitis. Denies: Throat Pain Respiratory: Reports: No Symptoms, Shortness of Breath. Denies: Sputum Cardiovascular: Denies: Chest Pain, Palpitations GI/Abdominal: Reports: No Symptoms : Reports: No Symptoms Skin: Reports: No Symptoms Neurological: Reports: No Symptoms. Denies: Headache Psychiatric: Reports: No Symptoms ED EXAM, GENERAL - Physical Exam Exam: See Below Exam Limited By: No Limitations General Appearance: Alert, No Apparent Distress, Other (Fairly uncomfortable on arrival, felt better after O2 was applied and his O2 sats went into the 90s) Eye Exam: Bilateral Eye: Normal Inspection Head: Atraumatic Neck: Supple, Non-Tender Respiratory/Chest: Lungs Clear, Other (Mild diffuse decreased breath sounds with some scattered rales in the left base) Cardiovascular: Regular Rate, Rhythm. No: Extra Beats GI/Abdominal: Soft, Non-Tender Extremities: Normal Inspection, Non-Tender. No: Pedal Edema Neurological: Oriented Psychiatric: Normal Affect, Normal Mood Skin Exam: Warm, Dry Course - Vital Signs Last Recorded V/S: Last Vital Signs Temp 99.8 F 01/06/22 17:39 Pulse 69 04/13/21 17:39 Resp 20 04/13/21 15:11 BP 171/75 H 04/13/21 17:39 Pulse Ox 90 L 04/13/21 17:39 - Orders/Labs/Meds Orders: Active Orders 24 hr Category Date Time Status Isolation [COMM] Stat Oth 04/13/21 15:25 Ordered Labs: Laboratory Tests 04/13/21 04/13/21 04/13/21 Range/Units 15:38 15:51 15:51 WBC 20.5 H (4.5-11.0) K/uL RBC 5.15 (4.30-5.90) M/uL Hgb 15.8 H (12.0-15.0) g/dL Hct 45.6 (40.0-54.0) % MCV 89 (80-98) fL MCH 31 (27-31) pg MCHC 35 (32-36) % Plt Count 344 (150-400) K/uL Neut % (Auto) 91.1 H (36-66) % Lymph % (Auto) 3.0 L (24-44) % [place] % (Auto) 5.2 (2-6) % Eos % (Auto) 0.1 L (2-4) % Baso % (Auto) 0.2 (0-1) % Sodium 136 L (140-148) mmol/L Potassium 3.6 (3.6-5.2) mmol/L Chloride 100 (100-108) mmol/L Carbon Dioxide 27 (21-32) mmol/L Anion Gap 12.6 (5.0-14.0) mmol/L BUN 19 H (7-18) mg/dL Creatinine 1.5 H (0.8-1.3) mg/dL Est Cr Clr Drug Dosing 48.67 mL/min Estimated GFR (MDRD) 47 L (>60) Glucose 128 H (74-106) mg/dL Calcium 8.9 (8.5-10.1) mg/dL Total Bilirubin 0.9 (0.2-1.0) mg/dL AST 26 (15-37) U/L ALT 41 (12-78) U/L Alkaline Phosphatase 138 H (46-116) U/L Total Protein 7.2 (6.4-8.2) g/dL Albumin 3.7 (3.4-5.0) g/dL Globulin 3.5 (2.3-3.5) g/dL Albumin/Globulin Ratio 1.1 L (1.2-2.2) Influenza Type A RNA Negative (NEGATIVE) RSV RNA (INAAT) Negative (NEGATIVE) Influenza Type B RNA Negative (NEGATIVE) SARS-CoV-2 RNA (MARTHA) Negative (NEGATIVE) Meds: Medications Discontinued Medications Generic Name Dose Route Start Last Admin Trade Name Freq PRN Reason Stop Dose Admin Ceftriaxone Sodium 1 gm/ 50 mls @ 100 mls/hr 04/13/21 15:47 04/13/21 16:20 Sodium Chloride IV 04/13/21 16:16 100 mls/hr ONETIME ONE Administration Levofloxacin/Dextrose 750 mg/ 150 mls @ 100 mls/hr 04/13/21 15:48 04/13/21 16:20 Premix IV 04/13/21 17:17 100 mls/hr ONETIME ONE Administration - Re-Assessments/Exams Free Text/Narrative Re-Assessment/Exam: 04/13/21 15:30 A 2 view chest x-ray will be obtained as well as a Covid 4 Plex viral study. 04/13/21 16:32 Chest x-ray shows a left lower lobe infiltrate, white count returned 20,000. Viral studies were negative. An IV was started, patient was given 750 mg of IV Levaquin and 1000 mg of IV Rocephin. He was continued on oxygen and transfer will be arranged hopefully to the [facility] for an inpatient bed as we do not have a bed available at this time. 04/13/21 17:11 Dr. Mcdonough accepted the patient for transfer to [place], patient remained stable. Departure - Departure Time of Disposition: 18:10 Disposition: DC/Tfer to Acute Hospital 02 Clinical Impression: Left lower lobe pneumonia Qualifiers: Pneumonia type: due to unspecified organism Qualified Code(s): J18.9 - Pneumonia, unspecified organism - Discharge Information Referrals: PCP,None [Primary Care Provider] - Forms: ED Department Discharge Care Plan Goals: Patient was transferred by EMS to the [facility] after being accepted by Dr. Mcdonough, he was discharged in stable condition but on O2 sat to maintain saturations above 92%. Sepsis Event Note (ED) - Evaluation Sepsis Screening Result: No Definite Risk - My Orders Last 24 Hours: My Active Orders 04/13/21 15:25 Isolation [COMM] Stat - Assessment/Plan Last 24 Hours: My Active Orders 04/13/21 15:25 Isolation [COMM] Stat
[2021-04-13] MEDS ORDERED: cefTRIAXone 1 GM in Sodium Chloride 0.9% 50 ML IV ONE (15:47)
[2021-04-13] MEDS ORDERED: Levofloxacin/Dextrose 5%-Water 750 MG in Premix Bag 1 BAG IV ONE (15:48)
--- NOTE | 2021-04-13 15:59 | CR ---
CHEST: 2 view CLINICAL HISTORY:Dyspnea COMPARISON:None FINDINGS: There is a left lower lobe pneumonia. Heart size and pulmonary vascularity are normal. No effusion is seen. Impression: Left lower lobe pneumonia
[2021-04-13 16:08] LABS: CORONAVIRUS COVID-19 NAA NEGATIVE (NEGATIVE)
[2021-04-13 17:40] VITALS: BP 171/75; PULSE 69
== END 2021-04-13 17:45 ==
LOC: JP.ED 14:51
DX: J18.9 Pneumonia, unspecified organism (principal); J44.9 Chronic obstructive pulmonary disease, unspecified; I48.91 Unspecified atrial fibrillation; I25.10 Atherosclerotic heart disease of native coronary artery without angina pectoris; E78.00 Pure hypercholesterolemia, unspecified; I10 Essential (primary) hypertension; I25.2 Old myocardial infarction; E11.9 Type 2 diabetes mellitus without complications; Z79.82 Long term (current) use of aspirin; Z79.899 Other long term (current) drug therapy; Z72.0 Tobacco use; Z20.822 Contact with and (suspected) exposure to COVID-19
CPT/HCPCS: 0241U; 36415; 71046; 80053; 85025; 96365; 96367; 99285; J0696; J1956

== ENCOUNTER 2022-02-24 11:49 | Emergency (ER) | payer MEDICARE, OTHER | END 2022-02-24 13:07 | disposition left against medical advice (07) | LOC: JP.ED 11:49 | DX: Z53.21 Procedure and treatment not carried out due to patient leaving prior to being seen by health care provider (principal) ==

== ENCOUNTER 2023-04-02 13:44 | Emergency (ER) | payer MEDICARE, OTHER ==
[2023-04-02 16:09] VITALS: BP 129/71; PULSE 63
== END 2023-04-02 16:54 | disposition home or self-care (01) ==
LOC: JP.ED 13:44
DX: S80.12XD Contusion of left lower leg, subsequent encounter (principal); E78.00 Pure hypercholesterolemia, unspecified; I10 Essential (primary) hypertension; I25.2 Old myocardial infarction; J44.9 Chronic obstructive pulmonary disease, unspecified; E11.9 Type 2 diabetes mellitus without complications; F17.210 Nicotine dependence, cigarettes, uncomplicated; Z79.82 Long term (current) use of aspirin; Z79.84 Long term (current) use of oral hypoglycemic drugs; Z79.899 Other long term (current) drug therapy
CPT/HCPCS: 93971-LT; 99283

== ENCOUNTER 2023-11-18 15:55 | Emergency (ER) | payer MEDICARE, OTHER ==
[2023-11-18 17:10] LABS: BASOPHILS ABSOLUTE AUTO 0.09 K/uL (0.00-0.10); BASOPHILS PERCENT AUTO 1.1 % (0.1-1.3); EOSINOPHILS ABSOLUTE AUTO 0.26 K/uL (0.00-0.40); EOSINOPHILS PERCENT AUTO 3.1 % (0.0-5.4); HEMATOCRIT 43.6 % (38.4-49.7); HEMOGLOBIN 15.5 g/dL (12.9-16.9); IMMATURE GRAN PERCENT AUTO 0.2 % (0.0-0.7); LYMPHOCYTES ABSOLUTE AUTO 1.89 K/uL (0.8-3.3); LYMPHOCYTES PERCENT AUTO 22.5 % (11.4-47.7); MEAN CORPUSCULAR HEMOGLOBIN 31.1 pg (31.6-35.5); MEAN CORPUSCULAR HGB CONC 35.6 g/dL (31.6-35.5); MEAN CORPUSCULAR VOLUME 87.4 fL (81.4-99.0); MONOCYTES ABSOLUTE AUTO 0.75 K/uL (0.20-0.90); MONOCYTES PERCENT AUTO 8.9 % (3.3-12.6); NEUTROPHILS ABSOLUTE AUTO 5.38 K/uL (1.0-7.6); NEUTROPHILS PERCENT AUTO 64.2 % (40.0-78.1); PLATELET COUNT,PLT 240 K/uL (130-375); RED BLOOD CELL COUNT 4.99 M/uL (4.14-5.76); WHITE BLOOD CELL COUNT,WBC 8.4 K/uL (3.2-11.0)
[2023-11-18 17:11] LABS: IMMATURE GRAN ABSOLUTE AUTO 0.02 K/uL (0.00-0.23)
[2023-11-18 17:40] LABS: BLOOD UREA NITROGEN,BUN 15 mg/dL (7-18); CALCIUM 9.3 mg/dL (8.5-10.1); CARBON DIOXIDE,CO2 29 mmol/L (21-32); CHLORIDE,CL 101 mmol/L (100-108); CREATININE 1.5 mg/dL (0.8-1.3); EST CRCL DRUG DOSING (CG) 45.17 mL/min; ESTIMATED GFR 49 mL/min (>60); GLUCOSE RANDOM 121 mg/dL (74-106); POTASSIUM,K 3.2 mmol/L (3.6-5.2); PRO B-TYPE NATRIUR PEPT,BNPPRO 571 pg/mL (5-125); SODIUM,NA 138 mmol/L (140-148); TROPONIN I HIGH SENSITIVITY 12.3 pg/mL (<=60.3)
[2023-11-18 17:41] LABS: ANION GAP 11.2 mmol/L (5.0-14.0); C-REACTIVE PROTEIN < 0.50 mg/dL (<0.50)
[2023-11-18] MEDS ORDERED: Sodium Chloride 0.9% 10 ML Syringe FLUSH PRN (17:49)
[2023-11-18] MEDS: Sodium Chloride 0.9% 1,000 ML IV ONE (18:08)
[2023-11-18] MEDS: Potassium Chloride 20 MEQ Tab.ER PO ONE (19:13)
[2023-11-18] MEDS: Sodium Chloride 0.9% 100 ML IV ONE (19:15)
[2023-11-18] MEDS: Iopamidol 755 Mg/ML 100 ML Bottle IV ONE (19:15)
[2023-11-18] MEDS: Sodium Chloride 0.9% 10 ML Syringe FLUSH ONE (19:16)
[2023-11-18 20:19] VITALS: BP 154/87; PULSE 83
[2023-11-18] MEDS ORDERED: Triamcinolone Acetonide 40 MG/ML 1 ML SDV ONE (20:37)
[2023-11-18] MEDS: Triamcinolone Acetonide 40 MG/ML 1 ML SDV IM ONE (20:44)
== END 2023-11-18 20:55 | disposition home or self-care (01) ==
LOC: JP.ED 15:55
DX: R06.02 Shortness of breath (principal); Z91.09 Other allergy status, other than to drugs and biological substances; I12.9 Hypertensive chronic kidney disease with stage 1 through stage 4 chronic kidney disease, or unspecified chronic kidney disease; N18.9 Chronic kidney disease, unspecified; I25.10 Atherosclerotic heart disease of native coronary artery without angina pectoris; I25.2 Old myocardial infarction; I48.91 Unspecified atrial fibrillation; E78.00 Pure hypercholesterolemia, unspecified; J44.9 Chronic obstructive pulmonary disease, unspecified; E11.22 Type 2 diabetes mellitus with diabetic chronic kidney disease; Z86.73 Personal history of transient ischemic attack (TIA), and cerebral infarction without residual deficits; Z95.5 Presence of coronary angioplasty implant and graft; Z87.891 Personal history of nicotine dependence; Z79.82 Long term (current) use of aspirin; Z79.899 Other long term (current) drug therapy; Z79.84 Long term (current) use of oral hypoglycemic drugs; Z79.51 Long term (current) use of inhaled steroids
CPT/HCPCS: 36415; 71046; 71275; 80048; 83605; 83880; 84145; 84484; 85025; 85379; 86140; 93005; 93010; 96360; 96361; 96372; 99284; 99285; A9270; J3301; J3490; J7030; Q9967

== ENCOUNTER 2024-01-30 19:11 | Emergency (ER) | payer MEDICARE, OTHER ==
[2024-01-30 19:58] LABS: STREP A BY PCR NOT DETECTED (NOT DETECT)
[2024-01-30 20:03] LABS: BASOPHILS ABSOLUTE AUTO 0.05 K/uL (0.00-0.10); BASOPHILS PERCENT AUTO 0.5 % (0.1-1.3); HEMATOCRIT 46.5 % (38.4-49.7); HEMOGLOBIN 16.2 g/dL (12.9-16.9); IMMATURE GRAN ABSOLUTE AUTO 0.07 K/uL (0.00-0.23); IMMATURE GRAN PERCENT AUTO 0.6 % (0.0-0.7); LYMPHOCYTES ABSOLUTE AUTO 0.24 K/uL (0.8-3.3); LYMPHOCYTES PERCENT AUTO 2.2 % (11.4-47.7); MEAN CORPUSCULAR HEMOGLOBIN 31.2 pg (31.6-35.5); MEAN CORPUSCULAR HGB CONC 34.8 g/dL (31.6-35.5); MEAN CORPUSCULAR VOLUME 89.6 fL (81.4-99.0); MONOCYTES ABSOLUTE AUTO 0.52 K/uL (0.20-0.90); MONOCYTES PERCENT AUTO 4.8 % (3.3-12.6); NEUTROPHILS PERCENT AUTO 91.9 % (40.0-78.1); PLATELET COUNT,PLT 137 K/uL (130-375); RED BLOOD CELL COUNT 5.19 M/uL (4.14-5.76); WHITE BLOOD CELL COUNT,WBC 10.8 K/uL (3.2-11.0)
[2024-01-30 20:10] LABS: CORONAVIRUS COVID-19 NAA NEGATIVE (NEGATIVE); INFLUENZA A NAA NEGATIVE (NEGATIVE); INFLUENZA B NAA NEGATIVE (NEGATIVE); RESPIRATORY SYNCYTIAL VIR NAA NEGATIVE (NEGATIVE)
[2024-01-30 20:25] LABS: A/G RATIO 1.1 (1.2-2.2); ALANINE AMINOTRANSFERASE,ALT 51 U/L (12-78); ALBUMIN 3.8 g/dL (3.4-5.0); ALKALINE PHOSPHATASE 127 U/L (46-116); ASPARTATE AMNIOTRANSFERASE,AST 127 U/L (15-37); BILIRUBIN TOTAL 1.7 mg/dL (0.2-1.0); BLOOD UREA NITROGEN,BUN 22 mg/dL (7-18); CALCIUM 9.7 mg/dL (8.5-10.1); CARBON DIOXIDE,CO2 22 mmol/L (21-32); CHLORIDE,CL 100 mmol/L (100-108); CREATININE 1.6 mg/dL (0.8-1.3); EST CRCL DRUG DOSING (CG) 42.35 mL/min; ESTIMATED GFR 46 mL/min (>60); GLUCOSE RANDOM 146 mg/dL (74-106); POTASSIUM,K 3.3 mmol/L (3.6-5.2); PROTEIN TOTAL,TP 7.4 g/dL (6.4-8.2); SODIUM,NA 137 mmol/L (140-148)
[2024-01-30 20:26] LABS: ANION GAP 18.3 mmol/L (5.0-14.0)
[2024-01-30 20:28] LABS: LACTIC ACID 2.3 mmol/L (0.4-2.0)
[2024-01-30] MEDS: Acetaminophen 500 MG Tab PO ONE (20:33)
[2024-01-30] MEDS: Sodium Chloride 0.9% 1,000 ML IV SCH (20:34)
[2024-01-30] MEDS ORDERED: Iopamidol 612 MG/ML 100 ML Bottle IV SCH (21:30)
[2024-01-30] MEDS: Iopamidol 755 Mg/ML 100 ML Bottle IV SCH (21:57)
[2024-01-30] MEDS: cefTRIAXone 2 GM in Sodium Chloride 0.9% 50 ML IV ONE (22:11)
[2024-01-30 22:46] LABS: APPEARANCE,URINE SLIGHTLY CLOUDY (CLEAR); BILIRUBIN,URINE SMALL (NEGATIVE); COLOR,URINE YELLOW (YELLOW); GLUCOSE,URINE NEGATIVE (NEGATIVE); KETONES,URINE 15 mg/dL (NEGATIVE); LEUKOCYTE ESTERASE,URINE NEGATIVE (NEGATIVE); NITRITE,URINE NEGATIVE (NEGATIVE); OCCULT BLOOD,URINE LARGE (NEGATIVE); PROTEIN,URINE >=300 mg/dL (NEGATIVE)
[2024-01-30 22:59] LABS: AMORPHOUS SEDIMENT,URINE FEW; BACTERIA,URINE MODERATE; EPITHELIAL CELLS,URINE FEW; MUCUS,URINE FEW; RBC,URINE 30-40 (0-5)
[2024-01-31] MEDS: Sodium Chloride 0.9% 1,000 ML IV SCH (00:32)
[2024-01-31 00:44] VITALS: BP 129/77; PULSE 106
== END 2024-01-31 01:25 ==
LOC: JP.ED 19:11
DX: I65.02 Occlusion and stenosis of left vertebral artery (principal); R53.1 Weakness; N39.0 Urinary tract infection, site not specified; R74.02 Elevation of levels of lactic acid dehydrogenase [LDH]; R79.89 Other specified abnormal findings of blood chemistry; I12.0 Hypertensive chronic kidney disease with stage 5 chronic kidney disease or end stage renal disease; I25.10 Atherosclerotic heart disease of native coronary artery without angina pectoris; N18.9 Chronic kidney disease, unspecified; E11.9 Type 2 diabetes mellitus without complications; Z79.82 Long term (current) use of aspirin; Z79.84 Long term (current) use of oral hypoglycemic drugs; Z79.899 Other long term (current) drug therapy; Z90.49 Acquired absence of other specified parts of digestive tract
CPT/HCPCS: 0241U; 36415; 70450; 70496; 70498; 71045; 80053; 81001; 82550; 82947; 83605; 85025; 85730; 87040; 87086; 87651; 96361; 96365; 99285; A9270; J0696; J3490; J7030; Q9967

== ENCOUNTER 2024-02-20 15:56 | Emergency (ER) | payer MEDICARE, OTHER ==
[2024-02-20 16:50] LABS: BASOPHILS ABSOLUTE AUTO 0.07 K/uL (0.00-0.10); EOSINOPHILS ABSOLUTE AUTO 0.05 K/uL (0.00-0.40); EOSINOPHILS PERCENT AUTO 0.7 % (0.0-5.4); HEMATOCRIT 42.6 % (38.4-49.7); HEMOGLOBIN 14.6 g/dL (12.9-16.9); IMMATURE GRAN PERCENT AUTO 0.3 % (0.0-0.7); LYMPHOCYTES ABSOLUTE AUTO 2.74 K/uL (0.8-3.3); LYMPHOCYTES PERCENT AUTO 38.2 % (11.4-47.7); MEAN CORPUSCULAR HEMOGLOBIN 30.9 pg (31.6-35.5); MEAN CORPUSCULAR HGB CONC 34.3 g/dL (31.6-35.5); MEAN CORPUSCULAR VOLUME 90.3 fL (81.4-99.0); MONOCYTES ABSOLUTE AUTO 0.75 K/uL (0.20-0.90); MONOCYTES PERCENT AUTO 10.4 % (3.3-12.6); NEUTROPHILS ABSOLUTE AUTO 3.55 K/uL (1.0-7.6); NEUTROPHILS PERCENT AUTO 49.4 % (40.0-78.1); PLATELET COUNT,PLT 181 K/uL (130-375); RED BLOOD CELL COUNT 4.72 M/uL (4.14-5.76); WHITE BLOOD CELL COUNT,WBC 7.2 K/uL (3.2-11.0)
[2024-02-20 16:59] LABS: IMMATURE GRAN ABSOLUTE AUTO 0.02 K/uL (0.00-0.23)
[2024-02-20 17:11] LABS: INR 1.3; PROTHROMBIN TIME 12.8 sec (9.2-10.6)
[2024-02-20 17:18] LABS: A/G RATIO 0.9 (1.2-2.2); ALANINE AMINOTRANSFERASE,ALT 36 U/L (12-78); ALBUMIN 3.4 g/dL (3.4-5.0); ALKALINE PHOSPHATASE 170 U/L (46-116); ANION GAP 15.6 mmol/L (5.0-14.0); ASPARTATE AMNIOTRANSFERASE,AST 32 U/L (15-37); BLOOD UREA NITROGEN,BUN 13 mg/dL (7-18); CALCIUM 9.6 mg/dL (8.5-10.1); CARBON DIOXIDE,CO2 25 mmol/L (21-32); CHLORIDE,CL 101 mmol/L (100-108); CREATININE 1.2 mg/dL (0.8-1.3); EST CRCL DRUG DOSING (CG) 56.46 mL/min; ESTIMATED GFR 65 mL/min (>60); GLUCOSE RANDOM 163 mg/dL (74-106); POTASSIUM,K 3.6 mmol/L (3.6-5.2); PROTEIN TOTAL,TP 7.2 g/dL (6.4-8.2); SODIUM,NA 138 mmol/L (140-148)
[2024-02-20 17:31] LABS: CORONAVIRUS COVID-19 NAA NEGATIVE (NEGATIVE); INFLUENZA A NAA NEGATIVE (NEGATIVE); INFLUENZA B NAA NEGATIVE (NEGATIVE); RESPIRATORY SYNCYTIAL VIR NAA NEGATIVE (NEGATIVE)
[2024-02-20 17:35] LABS: APPEARANCE,URINE CLEAR (CLEAR); BILIRUBIN,URINE NEGATIVE (NEGATIVE); COLOR,URINE YELLOW (YELLOW); GLUCOSE,URINE NEGATIVE (NEGATIVE); KETONES,URINE NEGATIVE (NEGATIVE); LEUKOCYTE ESTERASE,URINE NEGATIVE (NEGATIVE); NITRITE,URINE NEGATIVE (NEGATIVE); OCCULT BLOOD,URINE TRACE-INTACT (NEGATIVE); PROTEIN,URINE NEGATIVE (NEGATIVE); UROBILINOGEN,URINE 0.2 EU/dL (0.2-1.0)
[2024-02-20 17:39] LABS: AMPHETAMINES SCREEN, URINE NEGATIVE (NEGATIVE); BARBITURATE SCREEN,URINE NEGATIVE (NEGATIVE); BENZODIAZEPINES SCREEN,URINE NEGATIVE (NEGATIVE); METHADONE SCREEN, URINE NEGATIVE (NEGATIVE); METHAMPHETAMINES SCREEN, URINE NEGATIVE (NEGATIVE); OXYCODONE SCREEN,URINE NEGATIVE (NEGATIVE); PROPOXYPHENE SCREEN,URINE NEGATIVE (NEGATIVE); THC SCREEN,URINE 50 NG/ML NEGATIVE (NEGATIVE)
[2024-02-20 17:41] LABS: AMORPHOUS SEDIMENT,URINE NOT SEEN; BACTERIA,URINE NOT SEEN; EPITHELIAL CELLS,URINE NOT SEEN; MUCUS,URINE NOT SEEN; RBC,URINE 0-5 (0-5); WBC,URINE 0-5 (0-5)
[2024-02-20] MEDS ORDERED: Sodium Chloride 0.9% 10 ML Syringe FLUSH PRN (17:52)
[2024-02-20 18:04] VITALS: BP 153/102; PULSE 99
[2024-02-20] MEDS: Iopamidol 755 Mg/ML 100 ML Bottle IV SCH (18:07)
[2024-02-20] MEDS: Sodium Chloride 0.9% 60 ML IV SCH (18:07)
[2024-02-20] MEDS ORDERED: Naloxone 0.4 MG/ML SDV IVPUSH PRN (18:43)
[2024-02-20] MEDS ORDERED: HYDROmorphone 0.5 MG/0.5 ML Syringe IVPUSH ONE (18:43)
== END 2024-02-20 19:04 | disposition home or self-care (01) ==
LOC: JP.ED 15:56
DX: I48.91 Unspecified atrial fibrillation (principal); I25.10 Atherosclerotic heart disease of native coronary artery without angina pectoris; I25.2 Old myocardial infarction; I12.9 Hypertensive chronic kidney disease with stage 1 through stage 4 chronic kidney disease, or unspecified chronic kidney disease; N18.9 Chronic kidney disease, unspecified; E78.00 Pure hypercholesterolemia, unspecified; J44.9 Chronic obstructive pulmonary disease, unspecified; E11.22 Type 2 diabetes mellitus with diabetic chronic kidney disease; Z95.5 Presence of coronary angioplasty implant and graft; Z90.49 Acquired absence of other specified parts of digestive tract; Z86.73 Personal history of transient ischemic attack (TIA), and cerebral infarction without residual deficits; Z79.82 Long term (current) use of aspirin; Z79.84 Long term (current) use of oral hypoglycemic drugs; Z79.51 Long term (current) use of inhaled steroids; Z79.899 Other long term (current) drug therapy
CPT/HCPCS: 0241U; 36415; 71045; 71275; 80053; 80305; 81001; 84145; 84484; 85025; 85379; 85610; 93005; 99285; J3490; Q9967; 93010; 99284